=== PATIENT | female | born 1985 | race American Indian/Alaskan Native ===

== ENCOUNTER → 2018-02-28 | Emergency (ER) | payer BC, MEDICAID ==
[2018-02-28 20:57] VITALS: BMI 31.8
[2018-02-28 21:19] VITALS: TEMP 97.9
[2018-02-28 22:02] LABS: SQUAMOUS EPITHIAL 13 /hpf (0-5); URINE BACTERIA RARE (<OCC); URINE BILIRUBIN NEGATIVE (NEGATIVE); URINE BLOOD NEGATIVE (NEGATIVE); URINE CLARITY CLOUDY (Clear); URINE COLOR YELLOW (YELLOW); URINE GLUCOSE (UA) NEG (Normal); URINE LEUKOCYTE ESTERASE TRACE Leu/uL (Negative); URINE PROTEIN NEGATIVE (NEGATIVE); URINE UROBILINOGEN 0.2-1.0 mg/dL (0.2-1.0)
== END | disposition home or self-care (01) ==
LOC: H.EROB2 19:46
DX: O26.93 Pregnancy related conditions, unspecified, third trimester (principal); R10.2 Pelvic and perineal pain; R19.7 Diarrhea, unspecified; Z3A.31 31 weeks gestation of pregnancy

== ENCOUNTER 2018-04-07 11:22 | Emergency (ER) | payer MEDICAID ==
[2018-04-07 12:03] VITALS: BMI 31.5
[2018-04-07 12:47] LABS: BASO % 0.4 % (0.0-2.0); EOS # 0.1 K/uL (0.0-0.7); EOS % 0.9 % (0.0-4.0); LYMPH # 1.3 K/uL (1.0-4.3); LYMPH % 20.3 % (20.0-40.0); MEAN CELL VOLUME 85.2 fl (81.0-99.0); MEAN CORPUSCULAR HEMOGLOBIN 28.1 pg (27.0-31.0); MEAN CORPUSCULAR HGB CONC 32.9 g/dL (33.0-37.0); MEAN PLATELET VOLUME 8.6 fl (7.2-11.7); MONO # 0.3 K/uL (0.0-0.8); MONO % 5.1 % (0.0-10.0); NEUT # 4.8 K/uL (1.8-7.0); NEUT % 73.3 % (50.0-75.0); NRBC % 0.1 % (0.0-0.0); RBC 4.28 Mil/uL (3.80-5.20); RED CELL DISTRIBUTION WIDTH 15.5 % (11.5-14.5); WHITE BLOOD COUNT 6.6 K/uL (4.8-10.8)
[2018-04-07 12:56] LABS: SQUAMOUS EPITHIAL 7 /hpf (0-5); URINE BACTERIA RARE (<OCC); URINE BILIRUBIN NEGATIVE (NEGATIVE); URINE BLOOD NEGATIVE (NEGATIVE); URINE CLARITY CLOUDY (Clear); URINE COLOR YELLOW (YELLOW); URINE GLUCOSE (UA) NEG (NEGATIVE); URINE LEUKOCYTE ESTERASE TRACE Leu/uL (Negative); URINE PROTEIN NEGATIVE (NEGATIVE); URINE UROBILINOGEN 0.2-1.0 mg/dL (0.2-1.0)
[2018-04-07 14:09] LABS: ALBUMIN 3.5 g/dL (3.5-5.0); BLOOD UREA NITROGEN 6 mg/dl (7-17); CALCIUM 8.9 mg/dL (8.4-10.2); GFR NON-AFRICAN AMERICAN > 60
[2018-04-07 14:10] LABS: ALB/GLOB RATIO 0.9 (1.0-2.1); ALT/SGPT 20 U/L (9-52); AST/SGOT 27 U/L (14-36)
[2018-04-08 01:49] VITALS: BP 135/70; PULSE 96; RESP 18; TEMP 98.1; O2SAT 100
--- NOTE | 2018-04-08 09:30 | OBHP ---
Datetime: 04/07/2018 12:29 IP Adm Impression: , intrauterine IP Admit Plan: Observation/Evaluation Admit Comment, IP Provider: 32 y/o @ 36.3wks w/SAVI of 05/02/2018 is presenting for evaluation af ter being found to have elevated 24hr urine protein of 348mg. She Denies any headache, visual change s, abdominal pain or lower extremity swelling. She endorses +FM _ denies any f/c/n/v/diarrhea. PNP: Luis Miguel Kenney @ [facility] OBGYNhx: x 2, 2016, 2010 PMH: sickle cell trait Meds: PNV Allergies: NKA Surghx: cyst removal from clitoris Famhx: mother has sickle cell trait; no famhx of cancer Sochx: Denies cigarette, EtOH or elicit drug use ROS: all points reviewed _ neg unless otherwise stated in HPI VS: 149/86, 133/81, 88 bpm, spo2-100% RR-16 Gen: laying in supine position breathing comfortably, no acute distress Cardio: s1s2, no murmurs Lungs: cta b/l Abd: Gravid, BS+, nontender Ext: calves nontender, nonedematous A/P: 32 y/p @ 36.3 wks sent for evaluation of elevated 24 hour urine. -FU CBC, CMP, LDH, uric acid, _ UA -Continue to monitor BP Plt-277 LDH-400 uric acid- 5 AST/ALT: Creatinine- 0.6 Mild pre-eclampsia: patient counseled on benefits of celestone _ declined injection: patient will follow up in [facility] 04/09/2018 at 1pm. Patient seen and evaluated with Dr. Jann Trammell, PGY-1, FM Addendum: I saw and examined patient. Pt observed at [facility]. Pt's labs WNL at this time and BP stable. Disc ussed plan with patient and discussed general information and treatment plan with mild pre-eclampsia. Recommended to patient to have steroid course to quicken FLM. Pt refusing steroids at this time. Pt with recent h/o noncompliance to recommendations from clinic. Discussed with patient the risks of pre-eclampsia and HTN during . Pt has f/u in clinic in two days. Pt discharged home wi th PTL and HTN precautions and will f/u in clinic as scheduled. All patient questions answered. Jann FHR - Baseline A Provider: 135 Gestation - Est Wks by US: 36.3 IP Hx Assessment: The History has been Reviewed and is Current EGA AdmitDate IP: 36.3 Vital Signs Provider: Reviewed IP Chief Complaint: Other NICHD Variability Prov Fetus A: Moderate 6-25bpm NICHD Accel Fetus A IP Provider: 15X15 FHR Category Provider Fetus A: Category I NICHD Decel Fetus A IP Provider: None Datetime: 02/28/2018 20:38 Extremities - PN: Normal Abdomen - PN: Normal Lungs - PN: Normal Heart - PN: Normal General - PN: Normal
--- NOTE | 2018-04-08 12:51 | US ---
Date of service: 04/07/2018 PROCEDURE: Biophysical profile score HISTORY: evaluation COMPARISON: None TECHNIQUE: Standard protocol for this study/examination. FINDINGS: FINDINGS: Biophysical profile score 8/8 Based on the followin. breathing movements: 2/2 2. Gross body movement: 2/2 3. tone: 2/2 4. Qualitative amniotic fluid index: 2/2 Amniotic fluid index 20.7 cm. weight 2.805 kg. Anterior placenta. Cephalic presentation. Gestational age based on LMP thirty-three weeks 2 days. Gestational age based on biometry 36 weeks 3 days. IMPRESSION: Biophysical profile score 8/8. Concordant findings (preliminary report) provided by RADHA BARKER
== END 2018-04-07 20:10 | disposition home or self-care (01) ==
LOC: H.EROB2 11:22
DX: O99.810 Abnormal glucose complicating pregnancy (principal); O14.03 Mild to moderate pre-eclampsia, third trimester

== ENCOUNTER 2018-04-19 15:01 | Inpatient (IN) | payer MEDICAID ==
[2018-04-19 16:13] VITALS: BMI 31.1
[2018-04-19 17:50] LABS: BASO % 0.3 % (0.0-2.0); EOS # 0.1 K/uL (0.0-0.7); EOS % 0.9 % (0.0-4.0); HEMOGLOBIN 13.2 g/dL (12.0-16.0); LYMPH # 1.5 K/uL (1.0-4.3); LYMPH % 21.1 % (20.0-40.0); MEAN CELL VOLUME 83.9 fl (81.0-99.0); MEAN CORPUSCULAR HEMOGLOBIN 28.2 pg (27.0-31.0); MEAN CORPUSCULAR HGB CONC 33.6 g/dL (33.0-37.0); MEAN PLATELET VOLUME 8.6 fl (7.2-11.7); MONO # 0.3 K/uL (0.0-0.8); MONO % 4.7 % (0.0-10.0); NEUT # 5.1 K/uL (1.8-7.0); NRBC % 0.3 % (0.0-0.0); RBC 4.67 Mil/uL (3.80-5.20); WHITE BLOOD COUNT 6.9 K/uL (4.8-10.8)
[2018-04-19] MEDS ORDERED: Oxytocin 30 UNIT 30 UNITS/500 ML BAG IV ONE (17:52)
[2018-04-19] MEDS ORDERED: Lactated Ringer's 1,000 ML IV ONE (17:52)
[2018-04-19 17:54] LABS: SQUAMOUS EPITHIAL 9 /hpf (0-5); URINE BACTERIA RARE (<OCC); URINE BILIRUBIN NEGATIVE (NEGATIVE); URINE BLOOD NEGATIVE (NEGATIVE); URINE CLARITY CLOUDY (Clear); URINE COLOR YELLOW (YELLOW); URINE GLUCOSE (UA) NEG (NEGATIVE); URINE LEUKOCYTE ESTERASE NEG Leu/uL (Negative); URINE PROTEIN NEGATIVE (NEGATIVE); URINE UROBILINOGEN 0.2-1.0 mg/dL (0.2-1.0)
[2018-04-19] MEDS: Lactated Ringer's 1,000 ML IV SCH (18:30)
--- NOTE | 2018-04-19 18:40 | US ---
Date of service: 04/19/2018 PROCEDURE: Biophysical profile HISTORY: Preeclampsia COMPARISON: 04/08/2018 biophysical profile TECHNIQUE: Standard protocol for this study/examination. FINDINGS: FINDINGS: Biophysical profile score 8/8 Based on the followin. breathing movements: 2/2 2. Gross body movement: 2/2 3. tone: 2/2 4. Qualitative amniotic fluid index: 2/2 Qualitative amniotic fluid index 15.07 cm. Closed cervix 4.55 cm. Measured cardiac rate 145 beats per minute. IMPRESSION: Biophysical profile score 8/8.
--- NOTE | 2018-04-19 18:54 | OBHP ---
Datetime: 04/19/2018 17:56 IP Adm Impression: Term, intrauterine IP Admit Plan: Admit to unit; Initiate labor induction protocol Admit Comment, IP Provider: 32/y , 38.1 wks based on 1st trimester US with EDC of 05/02/18 sent t o [facility] by Dr. Siddiqui for preeclampsia evaluation. Patient was seen in clinic today with BP 136/81, FHR 150 vertex, U glucose and protein negative. Patient found to have elevated 24 hr urine protein of 34 8mg. She Denies any headache, visual changes, abdominal pain or lower extremity swelling. She endors es +FM _ denies any f/c/n/v/diarrhea. OBGYNhx: x 2, 2016, 2010 PMH: sickle cell trait Meds: PNV Allergies: NKA Surghx: cyst removal from clitoris 2013 Famhx: mother has sickle cell trait; no famhx of cancer Sochx: Denies cigarette, EtOH or elicit drug use ROS: all points reviewed _ neg unless otherwise stated in HPI VS: 140/81, HR 94 Gen: laying in supine position breathing comfortably, no acute distress Cardio: s1s2, no murmurs Lungs: cta b/l Abd: Gravid, BS+, nontender Ext: calves nontender, nonedematous EFM: nonreactive strip which improved after maternal position change. Tatamy: No contractions A/P: 32/y , 38.1 wks with preeclampsia admitted for induction of labor - F/U CBC, CMP, UA - HIV, RPR, Hep B, GC/Chl, GBS negative - Rubella nonimmune - BPP for further evaluation -Continue to monitor BP - Initiate labor induction protocol - LR bolus and Pitocin induction - Monitor for cerical changes Case discussed with attending Isidro Thompson, PGY1 Addendum by Dr. Reyes: I have evaluated the patient independently and I agree with the above. The patient is a @ 38.1 wks with diagnosed pre-eclampsia for about 2 wks. Patient was counseled t o proceed with induction at term due to risks including pre-eclampsia with severe feature, cerebral e laz, pulmonary edema, placental abruption, growth restriction and possible . Patien t declined and refused induction. Today patient was seen in clinic and sent to [facility] for BPP - again risks/benefits of induction for pre-eclampsia were reviewed and patient at this time agreed t o proceed with induction. VE = 1/50/-3, soft, posterior. Will watch BPs closely, ranging 140s-160s/90 s-100s. Patient denies symptoms of severe. If BPs increase above 160/100 consistantly will treat with anti hypertensives and if any sign of pre-eclampsia with severe features will start MgSO4 for seizur e prophylaxis. WIll start Pitocin for induction Pelvic Type - PN: Not Done Extremities - PN: Normal Abdomen - PN: Normal Back - PN: Normal Breast - PN: Not Done Lungs - PN: Normal Heart - PN: Normal Thyroid - PN: Normal Neurologic - PN: Normal HEENT - PN: Normal General - PN: Normal FHR - Baseline A Provider: 140 Membranes, Provider: Intact Contraction Comments Provider: occasional (Annotations: Data stored by CPN on behalf of user) Comments, ACOG Physical Exam: Gen: laying in supine position breathing comfortably, no acute distres s Cardio: s1s2, no murmurs Lungs: cta b/l Abd: Gravid, BS+, nontender Ext: calves nontender, nonedematous EFM: nonreactive strip which improved after maternal position change. Tatamy: No contractions IP Hx Assessment: The History has been Reviewed and is Current EGA AdmitDate IP: 38.1 Vital Signs Provider: Reviewed IP Indication for Induction: Gest. HTN/PreEclampsia/Eclampsia IP Chief Complaint: Signs/Symptoms Gestational HTN NICHD Variability Prov Fetus A: Moderate 6-25bpm NICHD Accel Fetus A IP Provider: 15X15 FHR Category Provider Fetus A: Category I NICHD Decel Fetus A IP Provider: None Genitourinary Exam: Normal DTRs - PN: Normal Datetime: 04/19/2018 16:40 Vital Signs Provider Details: Elevated BP
[2018-04-19 20:30] LABS: ALB/GLOB RATIO 0.9 (1.0-2.1); ALBUMIN 3.6 g/dL (3.5-5.0); ALT/SGPT 26 U/L (9-52); AST/SGOT 24 U/L (14-36); BLOOD UREA NITROGEN 6 mg/dl (7-17); CALCIUM 9.2 mg/dL (8.4-10.2); GFR NON-AFRICAN AMERICAN > 60
--- NOTE | 2018-04-20 03:53 | OBPN ---
Datetime: 04/20/2018 03:48 IP Informed Consent Obtain: Vaginal Delivery IP Procedures: Sterile Vag Exam IP Progress Plan: Continue present management; Cervical Ripening Membranes, Provider: Intact FHR - Baseline A Provider: 150 IP Progress Note Comment: Patient evaluated, comfortable. VE=1-2/5/-3 FHr = 150 minimal variability, no accels, no decels TOCO = irregular contractions A/P 1. Patient has made little cervical change, Pitocin @ 18 mu/min. Discussed with patient, will stop Pitocin and start Cyotec for cervical ripening 2. Patient's BP highest 140s/70s, all labs nml, no new signs of pre-eclampsia with severe features 3. Patient declined pain medication at this time 4. CEFM and TOCO Vital Signs Provider: Reviewed; Within Normal Limits NICHD Variability Prov Fetus A: Minimal - Undetectable to <5bpm Dilatation, Provider: 1-2 Effacement, Provider: 50 Station, Provider: -3 NICHD Decel Fetus A IP Provider: None Datetime: 04/19/2018 17:56 Contraction Comments Provider: occasional (Annotations: Data stored by CPN on behalf of user) NICHD Accel Fetus A IP Provider: 15X15 FHR Category Provider Fetus A: Category I Datetime: 04/19/2018 16:40 Vital Signs Provider Details: Elevated BP Datetime: 04/07/2018 12:29 Gestation - Est Wks by US: 36.3
[2018-04-20] MEDS: Lactated Ringer's 1,000 ML IV SCH ×3 (04:05→18:50)
[2018-04-20] MEDS ORDERED: Oxytocin 30 UNIT 30 UNITS/500 ML BAG IV ONE ×2 (07:29→11:17)
--- NOTE | 2018-04-20 08:09 | OBPN ---
Datetime: 04/20/2018 06:00 IP Informed Consent Obtain: Vaginal Delivery IP Procedures: Sterile Vag Exam IP Progress Plan: Continue present management Membranes, Provider: Ruptured FHR - Baseline A Provider: 140 IP Progress Note Comment: Patient feeling increased contractions, does not want pain medication at t his point VE=2/50/-3 FHR = 140 mod/minimal variability, 2 late decelerations noted, +accels TOCO = ctxning q 6 mins A/P 1. Patient feeling increased pain with contractions, does not want pain medication 2. Will restart Pitocin at 8am, pt is now 2cm 3. CEFM and TOCO 4. The FHR has been mostly a Cat-2 tracing, will continue to observe as long as patinet is making cervical change and no additional changes 5. No new evidence of severe pre-eclampsia Vital Signs Provider: Reviewed; Within Normal Limits NICHD Accel Fetus A IP Provider: 15X15 NICHD Variability Prov Fetus A: Minimal - Undetectable to <5bpm Dilatation, Provider: 2 Effacement, Provider: 50 Station, Provider: -3 NICHD Decel Fetus A IP Provider: Late
[2018-04-20] MEDS ORDERED: OXYTOCIN/0.9 % NS 20 UNIT/1,000 ML BAG IV ONE (11:17)
[2018-04-20] MEDS ORDERED: Fentanyl/Bupivacaine HCl 250 ML EPI ONE (17:19)
--- NOTE | 2018-04-20 18:31 | OBPN ---
Datetime: 04/20/2018 18:23 IP Progress Impression: Normal progression of labor IP Progress Plan: Continue present management; Induction FHR - Baseline A Provider: 145 Gestation - Est Wks by US: 38.2 Presentation-Admit: Vertex IP Progress Note Comment: Patient now comfortable with epidural, was feeling pressure before it was placed EFM Category I, reportedly SROMed earlier today but some membranes may have been palpable on exam Still in latent phase of induction 1. Making cervical change, continue titrating pitocin 2. EFM appropriate, no interventions needed 3. Anticipate vaginal delivery Loree Siddiqui MD OB Fellow Vital Signs Provider: Reviewed; Within Normal Limits FHR Category Provider Fetus A: Category I NICHD Variability Prov Fetus A: Moderate 6-25bpm Dilatation, Provider: 4 Effacement, Provider: 60 Station, Provider: -3 NICHD Decel Fetus A IP Provider: None
[2018-04-20] MEDS ORDERED: Benzocaine/Menthol SPRAY TOP PRN ×2 (19:44→22:31)
[2018-04-20] MEDS ORDERED: Oxycodone/Acetaminophen 5/325 mg Tab PO PRN ×2 (19:44→22:31)
--- NOTE | 2018-04-20 22:01 | OBDS ---
DELIVERY PERSONNEL Delivery Doctor: Refugio Madden MD Substation Manager: Agustin Poe RN Anesthesiologist: Jolene Snyder MD Resident: / MATERNAL INFORMATION Delivery Anesthesia: Epidural Medications in Delivery: PITOCIN 30 UNITS IN NS Estimated Blood Loss (ml): 200 Placenta Cultured: No Maternal Complications: None Provider Comments: 32 year old admitted for IOL at 38.1 for preeclampsia. Progressed to at 38.2 weeks after pitocin administration. Live female infact, position OCTAVIO over intact perineum with epidural anesthesia. placed on maternal abdomen and delayed cord clamping was performed. s 9_9, no excessive resuscitation required. No meconium or nuchal cord. Spontaneous delivery of place nta with 3-vessel cord. No lacerations. EBL 200cc. Mom and infant are in stable condition and will be recovered in L_D. Loree Siddiqui MD OB Fellow I was present for this delivery. (ES) LABOR SUMMARY EDC: 05/02/2018 00:00 No. Babies in Womb: 1 Attempted: No Labor Anesthesia: Epidural LABOR INFORMATION Reason for Induction: Gest. HTN/PreEclampsia/Eclampsia Onset of Labor: 04/20/2018 04:05 Complete Dilatation: 04/20/2018 19:25 Cervical Ripening Agents: Cytotec @ Other Ripening Agents: pitocin at 8 mu/min via pump Oxytocin: Induction Group B Beta Strep: Negative (Annotations: 04/04/18=negative) Antibiotics # of Doses: 0 Steroids Given: None Reason Steroids Not Administered: Not Applicable MEMBRANES Membranes Rupture Method: Spontaneous Rupture of Membranes: 04/20/2018 04:05 Length of Rupture (hrs): 15.53 Amniotic Fluid Color: Clear Amniotic Fluid Amount: Small Amniotic Fluid Odor: Normal STAGES OF LABOR Stage 1 hrs: 15 Stage 1 min: 20 Stage 2 hrs: 0 Stage 2 min: 12 Stage 3 hrs: 0 Stage 3 min: 5 Total Time in Labor hrs: 15 Total Time in Labor min: 37 VAGINAL DELIVERY Laceration Extension: N/A Laceration Type: None Laceration Repair: Not Applicable Initial Vag Sponge Count: 5 Final Vag Sponge Count: 5 Initial Vag Sharps Count: 0 Final Vag Sharps Count: 0 Sponge Count Correct: Yes Sharps Count Correct: N/A BABY A INFORMATION Delivery Date/Time: 04/20/2018 19:37 Method of Delivery: Vaginal Born in Route : No : N/A Forceps: N/A Vacuum Extraction: N/A Shoulder Dystocia : No SHOULDER DYSTOCIA BABY A Delivery Date/Time: 04/20/2018 19:37 PRESENTATION/POSITION BABY A Presentation: Cephalic Cephalic Presentation: Vertex Vertex Position: Left Occipital Anterior Breech Presentation: N/A PLACENTA INFORMATION BABY A Placenta Delivery Time : 04/20/2018 19:42 Placenta Method of Delivery: Spontaneous Placenta Status: Delivered SCORES BABY A Heart Rate 1 min: >100 bpm Resp Effort 1 min: Good Cry Reflex Irritability 1 min: Cough or Sneeze or Pulls Away Muscle Tone 1 min: Active Motion Color 1 min: Body [place], Extremities Blue Resuscitation Effort 1 min: Tactile Stimulation SCORE 1 MIN: 9 Heart Rate 5 min: >100 bpm Resp Effort 5 min: Good Cry Reflex Irritability 5 min: Cough or Sneeze or Pulls Away Muscle Tone 5 min: Active Motion Color 5 min: Body [place], Extremities Blue Resuscitation Effort 5 min: N/A SCORE 5 MIN: 9 INFANT INFORMATION BABY A Gestational Age at Delivery: 38.0 Gestational Status: Term Infant Outcome : Liveborn Condition : Stable Infant Sex: Female IDENTIFICATION/MEDS BABY A ID Band Number: [id number] ID Band Location: Left Leg; Left Arm WEIGHT/LENGTH BABY A Birthweight (gms): 2820 Weight (lb): 6 Infant Weight (oz): 3 CORD INFORMATION BABY A No. Cord Vessels: 3 Nuchal Cord : N/A Infant Suction: None
[2018-04-20] MEDS ORDERED: Lidocaine 1% Inj (20ml) ONE (23:27)
[2018-04-21 06:49] LABS: BASO # 0.1 K/uL (0.0-0.2); BASO % 0.5 % (0.0-2.0); EOS # 0.1 K/uL (0.0-0.7); HEMOGLOBIN 12.7 g/dL (12.0-16.0); LYMPH # 2.4 K/uL (1.0-4.3); LYMPH % 23.2 % (20.0-40.0); MEAN CELL VOLUME 82.9 fl (81.0-99.0); MEAN CORPUSCULAR HEMOGLOBIN 28.3 pg (27.0-31.0); MEAN CORPUSCULAR HGB CONC 34.1 g/dL (33.0-37.0); MEAN PLATELET VOLUME 8.7 fl (7.2-11.7); MONO # 0.5 K/uL (0.0-0.8); MONO % 5.3 % (0.0-10.0); NEUT # 7.2 K/uL (1.8-7.0); RBC 4.48 Mil/uL (3.80-5.20); RED CELL DISTRIBUTION WIDTH 15.6 % (11.5-14.5); WHITE BLOOD COUNT 10.3 K/uL (4.8-10.8)
[2018-04-21] MEDS: Multivitamin With Minerals Tab PO SCH ×2 (08:33→14:50)
[2018-04-21] MEDS ORDERED: Multivitamin With Minerals Tab PO SCH (09:00)
--- NOTE | 2018-04-21 13:01 | OBPPN ---
Datetime: 04/21/2018 08:07 PP Pain Prov: Within normal limits PP Nausea Prov: Denies PP Flatus Prov: Yes PP BM Prov: Yes PP Breasts Prov: Normal PP Heart Prov: Normal PP Lungs Prov: Normal PP Abdomen/Uterus Prov: Normal PP Lochia Prov: Normal PP Extremities Prov: Normal PP C/S Incision Prov: Not Applicable PP Progress Prov: Normal PP Impression Prov: Normal progression PP Plan Prov: Continue present management PP Progress Note Prov: PPD 1. Patient seen and examined at bedside this morning. No acute events ove rnight. Pt reports mild pain controlled with pain meds. Breast feeding without difficulty. Tolerating PO diet. Lochia similar to menses, voiding freely, passing gases and had bowel movement in am. Denie s fever/chills, diarrhea/constipation, nausea/vomiting, CP/SOB, dizziness, calf pain. O: GEN: Resting comfortably in bed, NAD LUNGS: CTA B/L, no wheezing, rhonchi, or rales CVS: RRR, S1, S2, no m/r/g ABD: ND, +BS, firm fundus @ umbilical level EXT: No edema, calves non tender A/P: 32 yo F s/p doing well on PPD1 Tolerating regular diet OOB with caution Continue vitamin Ibuprofen 600 mg prn for pain Encouraged PP H/H 12.7/37.2 Anticipate discharge to home on 04/22/2018 Alon PGY2 OB Hopsitalist on-call Pt seen on [facility]; agree with ntmarcello. SAMMY THOMAS PP Procedures: None Vital Signs Provider PP: Reviewed
--- NOTE | 2018-04-22 07:39 | OBPPN ---
Datetime: 04/22/2018 07:24 PP Pain Prov: Within normal limits PP Nausea Prov: Denies PP Flatus Prov: Yes PP BM Prov: No PP Breasts Prov: Not Done PP Heart Prov: Normal PP Lungs Prov: Normal PP Abdomen/Uterus Prov: Normal PP Lochia Prov: Normal PP Vulva/Perineum Prov: Not Done PP CVA Tenderness Prov: Not Done PP Extremities Prov: Normal PP C/S Incision Prov: Not Applicable PP Progress Prov: Normal PP Impression Prov: Normal progression PP Plan Prov: Discharge PP Progress Note Prov: S: Patient seen this morning at bedside, she is now s/p on 04/20/18, today is PPD 2. Pt reports no complaints today. Reports minimal abdominal pain but states is better w ith pain medication. She is tolerating PO intake w/o N/V, ambulating to bathroom without any difficul ties, lochia is less than menses in volume, Breast feeding w/o difficulty. Patient reports flatus but no BM as of yet. O: VS WNL PE: Patient is resting comfortably in her hospital bed. In no acute distress. HEENT: EOMI, Mucous membrane moist. RESP: Clear air entry bilaterally. CV: RRR, no murmurs, gallops or rubs. ABD: soft, non-tender, uterus firm below umbilicus LE: No edema, Lex's negative. A/P: 32 y/o now s/p on 04/20/18, today is PPD2- normal post- progression. Patient is stable to be D/C home. - Encourage ambulation - Encourage to continue - PNV 1 tab PO daily - Ibuprofen 600mg 1 tab Q6h prn for mild-mod pain - Anticipate D/C today, 04/22/18 Madeleine Medellin MD PGY1 OB Hospitalist Addendum: Pt seen and examined by me. Agree w/ above. PPD 2 s/p , doing well, breast feeding. Discharge home today. (ES) IP PP Procedures: None Vital Signs Provider PP: Reviewed; Within Normal Limits
--- NOTE | 2018-04-22 07:41 | OBDCSUM ---
Datetime: 04/22/2018 07:28 Discharged to, Provider: Home Follow up at, Provider: CHF Disch Instr Activity: Normal activity Disch Instr Diet: Regular Discharge Instructions, Provider: Routine instructions given Discharge Diagnosis, Provider: Term Delivered Discharge Time: 04/22/2018 10:00 Follow up in weeks, Provider: 6 weeks Disch Referrals: None Contraception discussed, Prov: Yes Disch Activity Restrictions: No exercising; No lifting; No sexual activity; Nothing in vagina - Inte rcourse, tampons, douche Discharge Comment, Provider: EGA: 38.1 weeks Diagnosis: 32 y/o , s/p on 04/22/18 @ 19:37. She delivered a baby female, Wt 2820g, 9 /9 Summary: Patient was induced due to pre-eclampsia. She is PPD2 with normal progression. No complic ations during post- period. Lochia less than menses. Pt was able to pass gas but has not had BM . She is tolerating regular diet, Fundus firm below umbilicus, able to ambulate w/o any difficulties, voiding well, denies fever, chills, CORTEZ, SOB, N/V, calf pain. CBC post-: 12.7/37.2 Discharge Instructions: 1. Continue and increase 2. PNV 1 tab PO daily 3. Ibuprofen 600mg 1 tab PO Q6h prn for mild-mod pain 4. Pt is not interested in using contraception at this time. 5. Instructions given to patient: If excessive bleeding, return of pain or increasing pain and/or fever without relief from medication, go to ED 6. PT was urged if feeling sad, mood swing, depression, neglect of baby, suicidal thoughts, homici ty thought should go to ED or call 911 for help 7. F/U post- visit in 6 weeks CHF clinic. Ramila Lewis will be contacting you with an appo intment. Madeleine Medellin MD PGY1 Discharge Diagnosis Prov Other: Patient is not interested in Contraception at this time. She reports she will speak to her physician when she is interested in contraception. Contraception after Delivery: Not Planning to Use
[2018-04-22] MEDS ORDERED: Measles, Mumps, and Rubella 0.5 ML VIAL SC ONE (07:45)
[2018-04-22] MEDS: Multivitamin With Minerals Tab PO SCH (09:01)
[2018-04-22 23:17] VITALS: BP 149/88; PULSE 93; RESP 20; TEMP 97.9; O2SAT 100
== END 2018-04-22 12:47 | disposition home or self-care (01) | DRG 372 ==
LOC: H.EROB2 15:01 → H.L&D 17:54 → H.OB/GYN 04-20 22:01
PROVIDERS: ADMIT Obstetrics & Gynecology; ATTEND Obstetrics & Gynecology
PROC: 10E0XZZ Delivery of Products of Conception, External Approach (ICD-10-PCS; principal; 2018-04-19)
PROC: 4A1HXCZ Monitoring of Products of Conception, Cardiac Rate, External Approach (ICD-10-PCS; 2018-04-19)
DX: O13.4 Gestational [pregnancy-induced] hypertension without significant proteinuria, complicating childbirth (principal); O99.02 Anemia complicating childbirth; Z3A.38 38 weeks gestation of pregnancy; Z37.0 Single live birth; D57.3 Sickle-cell trait